=== PATIENT | male | born 1970 | race Caucasian/White ===

== ENCOUNTER 2018-08-06 05:33 | Emergency (ER) | payer BC ==
[~2018-08-06] VITALS: Ht 182.9 cm; Wt 109.1 kg
[~2018-08-06 05:33] MED LIST: ALLEGRA30 MG; ANTIVERT 25MG25 MG PO; ASPIRIN 81M81 MG/TA2 PO; CEFTIN500 MG; CLEOCIN HC150 MG/CAP PO; LEVAQUIN 5500 MG/TA1 PO; NO HOME MEDICATIONS; PREDNISONE20 MG PO; SINGULAIR 110 MG/TAB PO; ULTRAM50 MG PO; ZYRTEC 10MG10 MG PO
[2018-08-06] MEDS ORDERED: BACTRIM DS 8001 TAB PO (05:54)
[2018-08-06] MEDS ORDERED: SUDAFED30 MG PO (05:54)
[2018-08-06 06:14] VITALS: BP 151/98; PULSE 94; TEMP 98.7
== END 2018-08-06 06:20 | disposition home or self-care (01) ==
LOC: COL.ER 05:33
DX: H66.92 Otitis media, unspecified, left ear (principal); J06.9 Acute upper respiratory infection, unspecified; Z79.82 Long term (current) use of aspirin

== ENCOUNTER 2019-05-02 00:58 | Emergency (ER) | payer BC ==
[~2019-05-02] VITALS: Ht 185.4 cm; Wt 106.8 kg
[~2019-05-02 00:58] MED LIST changes: +BACTRIM DS 8001 TAB PO; +SUDAFED30 MG PO
[2019-05-02 01:04] VITALS: BP 143/88; TEMP 99.5
[2019-05-02] MEDS ORDERED: SINGULAIR 110 MG/TAB PO (01:12)
[2019-05-02] MEDS ORDERED: DOXYCYCLINE 10100 MG PO (01:34)
[2019-05-02] MEDS ORDERED: TESSALON P100 MG/CAP PO (01:34)
[2019-05-02 01:52] VITALS: PULSE 107
== END 2019-05-02 01:54 | disposition home or self-care (01) ==
LOC: COL.ER 00:58
DX: J20.9 Acute bronchitis, unspecified (principal)

== ENCOUNTER 2024-01-06 16:08 | Emergency (ER) | payer BC ==
[~2024-01-06] VITALS: Ht 185.4 cm; Wt 97.7 kg
[~2024-01-06 16:08] MED LIST changes: +DOXYCYCLINE 10100 MG PO; +TESSALON P100 MG/CAP PO
[2024-01-06 16:14] VITALS: TEMP 98
[2024-01-06] MEDS ORDERED: Meclizine 25 MG TAB PO ONE (19:00)
[2024-01-06 20:04] LABS: BASO % 0.3 % (0.0-2.0); EOS # 0.1 K/mm3 (0.0-0.7); EOS % 0.4 % (0.0-4.0); GRAN # 8.8 K/mm3 (1.4-6.5); GRAN % 75.2 % (42.2-75.2); HEMATOCRIT 44.6 % (42.0-52.0); HEMOGLOBIN 15.8 g/dl (13.5-18.0); LYMPH # 2.1 K/mm3 (1.2-3.4); LYMPH % 17.9 % (20.0-51.0); MEAN CELL VOLUME 88 fl (80.0-100.0); MEAN CORPUSCULAR HEMOGLOBIN 31 pg (27-31); MEAN CORPUSCULAR HGB CONC 35 g/dl (33.0-37.0); MEAN PLATELET VOLUME 9.1 fl (7.4-10.4); MONO # 0.7 K/mm3 (0.1-0.6); MONO % 5.7 % (1.7-9.3); PLATELET COUNT 170 K/mm3 (130-400); RED BLOOD COUNT 5.09 M/mm3 (4.20-5.60); REDCELL DISTRIBUTION WIDTH-CV 12.2 % (11.5-14.5)
[2024-01-06 20:19] LABS: ALBUMIN 3.9 g/dL (3.5-5.0); BILIRUBIN,TOTAL 0.9 mg/dL (0.2-1.2); CALCIUM 9.7 mg/dL (8.4-10.2); CREATININE, serum 0.95 mg/dL (0.72-1.25); POTASSIUM 3.9 mEq/L (3.5-4.5); TOTAL PROTEIN 7.3 g/dl (6.2-8.1)
[2024-01-06] MEDS ORDERED: CLEOCIN HCL300 MG PO (20:29)
[2024-01-06] MEDS ORDERED: ANTIVERT 12.512.5 MG PO (20:29)
[2024-01-06] MEDS ORDERED: Clindamycin 150 MG CAP PO ONE (20:30)
[2024-01-06 20:36] VITALS: BP 140/82; PULSE 100
== END 2024-01-06 20:36 | disposition home or self-care (01) ==
LOC: COL.ER 16:08
PROVIDERS: Nurse Practitioner
DX: H92.02 Otalgia, left ear (principal); R42 Dizziness and giddiness; Z88.0 Allergy status to penicillin; Z88.1 Allergy status to other antibiotic agents